=== PATIENT | female | born 1975 | race Two or more races ===

== ENCOUNTER 2019-03-27 19:53 | Emergency (ER) | payer OTHER ==
[~2019-03-27] VITALS: Ht 157.5 cm; Wt 59.9 kg
[~2019-03-27 19:53] MED LIST: AMITRIPTYLINE H10 MG PO; ATORVASTATIN CA10 MG; CLARINEX-D 121 EACH PO; CLONAZEPAM1 MG; CYCLOBENZAPRINE10 MG PO; LIPITOR20 MG; NASONEX17 GM TOP; ORPHENADRINE C100 MG PO; PAXIL20 MG; PAXIL30 MG; SKELAXIN800 MG PO; SYNTHROID50 MCG; SYNTHROID75 MCG; TENCON 50-3251 EACH PO; TRAMADOL HCL50 MG PO
[2019-03-27] MEDS ORDERED: TOPROL XL25 M1 (20:24)
[2019-03-27] MEDS ORDERED: LIPITOR20 MG (20:24)
[2019-03-27] MEDS ORDERED: LAMICTAL150 MG (20:25)
[2019-03-27] MEDS ORDERED: SYNTHROID75 MCG (20:25)
[2019-03-27] MEDS ORDERED: FIORICET (20:25)
[2019-03-27] MEDS ORDERED: [UNRECOGNIZED DRUG - OTHER] (20:26)
== END 2019-03-27 21:54 | disposition home or self-care (01) ==
LOC: ER 19:53
DX: G43.909 Migraine, unspecified, not intractable, without status migrainosus (principal); R00.2 Palpitations

== ENCOUNTER 2019-08-05 21:03 | Emergency (ER) | payer OTHER ==
[~2019-08-05] VITALS: Ht 157.5 cm; Wt 62.6 kg
[~2019-08-05 21:03] MED LIST changes: +FIORICET; +LAMICTAL150 MG; +TOPROL XL25 M1; +[UNRECOGNIZED DRUG - OTHER]
[2019-08-05] MEDS ORDERED: LYRICA100 MG (21:18)
[2019-08-05] MEDS ORDERED: WELLBUTRIN SR100 MG (21:19)
== END 2019-08-05 21:57 | disposition home or self-care (01) ==
LOC: ER 21:03
DX: G43.909 Migraine, unspecified, not intractable, without status migrainosus (principal)

== ENCOUNTER 2019-08-25 21:16 | Emergency (ER) | payer OTHER ==
[~2019-08-25] VITALS: Ht 157.5 cm; Wt 65.8 kg
[~2019-08-25 21:16] MED LIST changes: +LYRICA100 MG; +WELLBUTRIN SR100 MG
== END 2019-08-26 01:09 | disposition home or self-care (01) ==
LOC: ER 21:16
DX: G43.809 Other migraine, not intractable, without status migrainosus (principal)

== ENCOUNTER 2019-11-29 14:57 | Emergency (ER) | payer OTHER ==
[~2019-11-29] VITALS: Ht 157.5 cm; Wt 59.0 kg
== END 2019-11-29 17:56 | disposition home or self-care (01) ==
LOC: ER 14:57
DX: M54.5 Low back pain (principal)

== ENCOUNTER 2020-11-25 18:42 | Emergency (ER) | payer OTHER ==
[~2020-11-25] VITALS: Ht 162.6 cm; Wt 61.2 kg
[2020-11-25] MEDS ORDERED: CLONAZEPAM1 MG (19:57)
== END 2020-11-25 22:35 | disposition home or self-care (01) ==
LOC: ER 18:42
DX: M62.838 Other muscle spasm (principal)

== ENCOUNTER 2020-11-26 19:41 | Emergency (ER) | payer OTHER ==
[~2020-11-26] VITALS: Ht 157.5 cm; Wt 61.2 kg
[2020-11-27] MEDS ORDERED: ACETAMINOPHEN650 M2 PO (00:48)
[2020-11-27] MEDS ORDERED: MEDROLPACK PO (00:48)
== END 2020-11-27 01:15 | disposition home or self-care (01) ==
LOC: ER 19:41
DX: M51.36 Other intervertebral disc degeneration, lumbar region (principal); M54.5 Low back pain

== ENCOUNTER 2021-01-07 03:02 | Emergency (ER) | payer OTHER ==
[~2021-01-07] VITALS: Ht 157.5 cm; Wt 59.9 kg
[~2021-01-07 03:02] MED LIST changes: +ACETAMINOPHEN650 M2 PO; +MEDROLPACK PO
== END 2021-01-07 06:33 ==
LOC: ER 03:02
DX: G43.901 Migraine, unspecified, not intractable, with status migrainosus (principal); R11.0 Nausea; Z88.6 Allergy status to analgesic agent

== ENCOUNTER 2025-03-11 23:23 | Emergency (ER) | payer OTHER ==
[~2025-03-11] VITALS: Ht 157.5 cm; Wt 66.2 kg
[2025-03-12] MEDS ORDERED: DIPHENHYDRAMINE HCL 50 MG/ML VIAL 1ML IM STA (02:18)
[2025-03-12] MEDS ORDERED: HALOPERIDOL LACTATE 5 MG/ML AMPUL IM STA (02:18)
[2025-03-12] MEDS ORDERED: HALOPERIDOL LACTATE 5 MG/ML AMPUL ONE (02:19)
[2025-03-12] MEDS ORDERED: DEXAMETHASONE SODIUM PHOSPHATE 4 MG/ML VIAL ONE (02:19)
[2025-03-12] MEDS ORDERED: DEXAMETHASONE SODIUM PHOSPHATE 4 MG/ML VIAL IV STA (02:19)
[2025-03-12] MEDS ORDERED: DIPHENHYDRAMINE HCL 50 MG/ML VIAL 1ML ONE (02:19)
== END 2025-03-12 04:10 | disposition home or self-care (01) ==
LOC: ER 23:23
DX: G43.909 Migraine, unspecified, not intractable, without status migrainosus (principal); Z88.2 Allergy status to sulfonamides; Z88.6 Allergy status to analgesic agent